=== PATIENT | female | born 1950 | race Caucasian/White ===

== ENCOUNTER 2022-07-23 09:11 | Day surgery (SDC) | payer MEDICARE, OTHER ==
[~2022-07-23] VITALS: Ht 163 cm; Wt 70.0 kg
[~2022-07-23 09:11] MED LIST: ASPIRIN CHEWABL81 MG PO; CENTRUM ADULTS1 EACH PO; HCTZ25 MG PO; LIPITOR 10MG TA10 MG PO; METOPROLOL SUC100 MG PO; MIRAPEX0.25 MG PO; MOTRIN100 MG/5 M PO; OS-CAL500 MG PO; PERCOCET 5-3251 EACH PO; PRILOSEC20 MG PO; RALOXIFENE HCL60 MG PO; VALSARTAN160 MG PO
[2022-07-23] MEDS ORDERED: CHILDREN'S ASPI81 MG PO (15:12)
[2022-07-24 07:38] LABS: BASOPHIL 0 % (0-2); EOSINOPHIL 0 % (0-7); HCT 33.1 % (37.0-47.0); HGB 10.8 g/dl (12.5-16.0); LYMPHOCYTE 8.1 % (15-48); MCH 30.3 pg (25.0-31.0); MCHC 32.6 g/dL (32.0-36.0); MCV 92.7 fL (78.0-100.0); MONOCYTE 6.6 % (0-12); MPV 11.6 fL (6.0-9.5); NRBC 0; PLT 139 K/uL (150-400); RBC 3.57 M/uL (4.20-5.40); RDW 13.2 % (11.5-14.0); WBC 11.1 K/uL (4.0-10.5)
[2022-07-24 08:17] LABS: BUN/CREAT RATIO (CALC) 34.7 RATIO; CREATININE 0.75 mg/dL (0.51-0.95); POTASSIUM 4.8 mmol/L (3.5-5.1)
[2022-07-24] MEDS ORDERED: FEOSOL325 MG PO (08:43)
== END 2022-07-24 13:36 | disposition home or self-care (01) ==
LOC: FAS 09:11 → FMS 11:48 → FAS 12:00
PROVIDERS: Orthopaedic Surgery
DX: M17.0 Bilateral primary osteoarthritis of knee (principal); M79.4 Hypertrophy of (infrapatellar) fat pad; I10 Essential (primary) hypertension; E78.5 Hyperlipidemia, unspecified; Z88.1 Allergy status to other antibiotic agents
CPT/HCPCS: 36415; 73560; 80048; 85025; 86850; 86900; 86901; 94010; 94760; 97110; 97162; 97165; 97530-GP; C1713; C1776; J0171; J0697; J1100; J1170; J1885; J2250; J2270; J2405; J2704; J2795; J3010; J7120; Q0162